=== PATIENT | male | born 1980 | race Caucasian/White ===

== ENCOUNTER 2020-07-08 18:30 | Emergency (ER) | payer SELFPAY ==
[2020-07-08] MEDS ORDERED: Sodium Chloride 0.9% 10 ML Syringe FLUSH PRN (18:44)
[2020-07-08] MEDS ORDERED: HYDROmorphone 2 MG/ML SDV IVPUSH ONE (18:47)
[2020-07-08] MEDS ORDERED: Ondansetron 4 MG/2 ML SDV IVPUSH ONE (18:47)
[2020-07-08] MEDS ORDERED: Morphine 4 MG/ML VIAL IVPUSH ONE (18:56)
[2020-07-08] MEDS ORDERED: Sodium Chloride 0.9% 1,000 ML IV SCH (19:00)
--- NOTE | 2020-07-08 19:54 | CT ---
INDICATION: Right flank pain, post-lithotripsy Tuesday. Pain since lithotripsy. Worse tonight. CT ABDOMEN AND PELVIS WITHOUT CONTRAST: Spiral 2.5 mm axial sections were obtained through the abdomen and pelvis without contrast with sagittal and coronal reconstructions 07/08/20 and compared with 06/18/20. Total exam DLP was 521.92 mGy-cm. The lower lung bashir and pleural spaces visualized on this study were unremarkable. The heart is not enlarged. No pericardial effusion was seen. The liver, spleen, adrenals, contracted gallbladder, and pancreas appear normal. The left kidney had a normal appearance with no obstructive uropathy. The right kidney is more prominent in size with perirenal fascial thickening and fat stranding and a fluid collection along the inferolateral aspect of the lower pole of the right kidney with some fat stranding extending into the pericolic gutter slightly. This appearance is apparently on the basis of hydronephrosis - significant increased level of obstructive uropathy present on the current study compared with 06/18/20. This is despite the presence of an ureteral stent with pigtail in place in the renal pelvis and urinary bladder on the right. There is also considerable fat stranding and density around the ureter as it travels into the pelvis. These findings were all compatible with a relatively severe degree of obstructive uropathy raising question of patency of the ureteral stent. There is urine in the urinary bladder, however, and there is thickening of the wall of the urinary bladder which further raises question of possibility of cystitis. The appendix is absent with history of its removal. No evidence of bowel obstruction or free air was seen. No retroperitoneal mass was identified. No additional organomegaly, mass lesions or additional areas of free fluid collection was seen. IMPRESSION: Significant increase in obstructive uropathy severity on the right, possibly on the basis of nonpatency of the recently placed ureteral stent on the right. Multiple calculi are noted along the stent in the proximal ureter with at least one smaller calculus in the distal ureter adjacent to the stent. No definite remaining calculi are seen in either kidney - the large renal pelvic calculus seen on the right apparently has been surgically fragmented apparently with lithotripsy. Report was called to Dr. Loyd at 1927 hours. [facility]
[2020-07-08] MEDS ORDERED: Sulfamethoxazole/Trimethoprim 800-160 MG Tab PO ONE (20:00)
--- NOTE | 2020-07-08 20:06 | EDM.PDOC ---
ED HPI GENERAL MEDICAL PROBLEM - General Chief Complaint: Flank Pain Stated Complaint: PAIN IN KIDNEY AREA Time Seen by Provider: 07/08/20 20:25 Source of Information: Reports: Patient History Limitations: Reports: No Limitations - History of Present Illness INITIAL COMMENTS - FREE TEXT/NARRATIVE: Patient presented to the ED because of RT flank pain. He has a h/o kidney stone and underwent ESWL with stent 1 week ago in [facility]. he still have hematuria and his RT flank pain has not improved at all since the procedure. There is no fever,chills, N/V/D. He took is norco with just mild relief. Right Abdominal Pain Score (Numeric/FACES): 9 - Related Data Allergies Allergy/AdvReac Type Severity Reaction Status Date / Time No Known Allergies Allergy Verified 07/08/20 19:51 Home Meds: Home Meds Acetaminophen/oxyCODONE [Percocet 325-5 MG] 1 each PO Q4H PRN #15 tab 07/08/20 [Rx] Sulfamethoxazole/Trimethoprim [Bactrim Ds Tablet] 1 each PO BID #15 tablet 07/08/20 [Rx] Past Medical History Genitourinary History: Reports: Renal Calculus - Past Surgical History Male Surgical History: Reports: Kidney Stone Extraction, Lithotripsy (ESWL) Social & Family History - Tobacco Use Tobacco Use Status *Q: Current Every Day Tobacco User Years of Tobacco use: 20 Packs/Tins Daily: 1 - Caffeine Use Caffeine Use: Reports: None - Recreational Drug Use Recreational Drug Use: No ED ROS GENERAL - Review of Systems Review Of Systems: See Below Constitutional: Reports: No Symptoms HEENT: Reports: No Symptoms Respiratory: Reports: No Symptoms Cardiovascular: Reports: No Symptoms Endocrine: Reports: No Symptoms GI/Abdominal: Reports: No Symptoms : Reports: Flank Pain, Hematuria Musculoskeletal: Reports: No Symptoms Skin: Reports: No Symptoms Neurological: Reports: No Symptoms ED EXAM, RENAL/ - Physical Exam Exam: See Below Exam Limited By: No Limitations General Appearance: Alert, No Apparent Distress Ears: Normal External Exam, Normal Canal Nose: Normal Inspection, Normal Mucosa Throat/Mouth: Normal Inspection, Normal Lips, Normal Teeth Head: Atraumatic, Normocephalic Neck: Normal Inspection, Supple, Non-Tender, Full Range of Motion Respiratory/Chest: No Respiratory Distress, Lungs Clear, Normal Breath Sounds Cardiovascular: Normal Peripheral Pulses, Regular Rate, Rhythm, No Edema GI/Abdominal: Normal Bowel Sounds, Soft, Non-Tender (Male) Exam: No Hernia Back Exam: Normal Inspection, Full Range of Motion Extremities: Normal Inspection Neurological: Alert, Oriented, CN II-XII Intact, Normal Cognition, Normal Gait Psychiatric: Normal Affect, Normal Mood Skin Exam: Warm, Dry, Intact, Normal Color Course - Vital Signs Text/Narrative:: Labs/CT result was duscussed with patient NS 1 L bolus Zpofran 4 mg IV Toradol 30 mg IV Case discussed with Dr Ureña who reviewed the CT as well and recommended for patient just to keep his appointment for a follow up with Dr Cochran on 07/18/2020. Info relayed to the patient. Last Recorded V/S: Last Vital Signs Temp 36.5 C 07/08/20 20:20 Pulse 83 07/08/20 20:20 Resp 18 07/08/20 20:20 BP 150/94 H 07/08/20 20:20 Pulse Ox 98 07/08/20 20:20 - Orders/Labs/Meds Orders: Active Orders 24 hr Category Date Time Status CULTURE URINE [RM] Stat Lab 07/08/20 19:10 Received Saline Lock Insert [OM.PC] Routine Oth 07/08/20 18:44 Ordered Labs: Laboratory Tests 07/08/20 07/08/20 07/08/20 Range/Units 19:00 19:00 19:05 WBC 10.1 (4.5-12.0) X10-3/uL RBC 5.34 (4.30-5.75) x10(6)uL Hgb 16.0 (13.5-17.8) g/dL Hct 46.7 (30.0-51.3) % MCV 87.4 (80-96) fL MCH 29.9 (27.7-33.6) pg MCHC 34.3 (32.2-35.4) g/dL RDW 12.5 (11.5-15.5) % Plt Count 328 (125-369) X10(3)uL MPV 7.5 (7.4-10.4) fL Neut % (Auto) 57.3 (46-82) % Lymph % (Auto) 29.7 (13-37) % [place] % (Auto) 9.2 (4-12) % Eos % (Auto) 3 (1.0-5.0) % Baso % (Auto) 1 (0-2) % Neut # (Auto) 5.8 (1.6-8.3) # Lymph # (Auto) 3.0 (0.6-5.0) # [place] # (Auto) 0.9 (0.0-1.3) # Eos # (Auto) 0.3 (0.0-0.8) # Baso # (Auto) 0.1 (0.0-0.2) # Sodium 139 (135-145) mmol/L Potassium 3.6 (3.5-5.3) mmol/L Chloride 102 (100-110) mmol/L Carbon Dioxide 27 (21-32) mmol/L BUN 17 (7-18) mg/dL Creatinine 1.0 (0.70-1.30) mg/dL Est Cr Clr Drug Dosing TNP Estimated GFR (MDRD) > 60 (>60) BUN/Creatinine Ratio 17.0 (9-20) Glucose 154 H (80-116) mg/dL Calcium 9.1 (8.6-10.2) mg/dL Urine Color [place] (YELLOW) Urine Appearance Cloudy (CLEAR) Urine pH 6.0 (5.0-6.5) Ur Specific [place] 1.020 (1.010-1.025) Urine Protein 500 H (NEGATIVE) mg/dL Urine Glucose (UA) Normal (NORMAL) mg/dL Urine Ketones Negative (NEGATIVE) mg/dL Urine Occult Blood Large H (NEGATIVE) Urine Nitrite Negative (NEGATIVE) Urine Bilirubin Negative (NEGATIVE) Urine Urobilinogen 1 H (NEGATIVE) mg/dL Ur Leukocyte Esterase Large H (NEGATIVE) Urine RBC >100 H (0-5) Urine WBC 20-30 H (0-5) Ur Squamous Epith Cells Occasional (NS,R,O) Urine Bacteria Few H (NS) Meds: Medications Discontinued Medications Generic Name Dose Route Start Last Admin Trade Name Freq PRN Reason Stop Dose Admin Hydromorphone HCl 1 mg 07/08/20 18:47 07/08/20 19:54 Dilaudid IVPUSH 07/08/20 18:48 Not Given ONETIME ONE Sodium Chloride 1,000 mls @ 999 mls/hr 07/08/20 19:00 07/08/20 19:26 Normal Saline IV 999 mls/hr ASDIRECTED ROMEL Administration Ketorolac Tromethamine 60 mg 07/08/20 20:00 07/08/20 23:12 Toradol IM 07/08/20 20:01 Not Given ONETIME ONE Ketorolac Tromethamine 30 mg 07/08/20 20:09 07/08/20 20:11 Toradol IVPUSH 07/08/20 20:10 30 mg ONETIME ONE Administration Morphine Sulfate 4 mg 07/08/20 18:56 07/08/20 19:35 Morphine IVPUSH 07/08/20 18:57 4 mg ONETIME ONE Administration Ondansetron HCl 4 mg 07/08/20 18:47 07/08/20 19:28 Zofran IVPUSH 07/08/20 18:48 4 mg ONETIME ONE Administration Sodium Chloride 10 ml 07/08/20 18:44 Saline Flush FLUSH ASDIRECTED PRN Keep Vein Open Trimethoprim/Sulfamethoxazole 1 tab 07/08/20 20:00 07/08/20 20:07 Septra Ds PO 07/08/20 20:01 1 tab ONETIME ONE Administration Departure - Departure Time of Disposition: 20:00 Disposition: Home, Self-Care 01 Condition: Good Clinical Impression: Nephrolithiasis - Discharge Information Prescriptions: Sulfamethoxazole/Trimethoprim [Bactrim Ds Tablet] 1 each PO BID #15 tablet Acetaminophen/oxyCODONE [Percocet 325-5 MG] 1 each PO Q4H PRN #15 tab PRN Reason: Pain Instructions: Kidney Stones, [id number] Referrals: Kamran Siddiqi MD [Primary Care Provider] - Forms: ED Department Discharge Additional Instructions: Please read discharge instructions on kidney stent, UTI Increase oral fluids Take oxycodone, 1-2 tablets every 4-6 hours as needed for pain Bactrim DS twice daily for 7 days Keep your appointment to see Dr Cochran on 07/18/10 Sepsis Event Note (ED) - Evaluation Sepsis Screening Result: No Definite Risk - My Orders Last 24 Hours: My Active Orders 07/08/20 18:44 Saline Lock Insert [OM.PC] Routine 07/08/20 19:10 CULTURE URINE [RM] Stat - Assessment/Plan Last 24 Hours: My Active Orders 07/08/20 18:44 Saline Lock Insert [OM.PC] Routine 07/08/20 19:10 CULTURE URINE [RM] Stat
[2020-07-08] MEDS: Ketorolac 60 MG/2 ML SDV IM ONE ×2 (20:08→23:12)
[2020-07-08] MEDS ORDERED: Ketorolac 30 MG/ML SDV IVPUSH ONE (20:09)
== END 2020-07-08 20:25 | disposition home or self-care (01) ==
LOC: FB.ED 18:30
DX: N13.2 Hydronephrosis with renal and ureteral calculous obstruction (principal); F17.210 Nicotine dependence, cigarettes, uncomplicated
CPT/HCPCS: 36415; 74176; 80048; 81001; 85025; 87086; 96374; 96375; 99284; A9270; J1885; J2270; J2405; J7030

== ENCOUNTER 2021-03-12 06:53 | Emergency (ER) | payer SELFPAY ==
--- NOTE | 2021-03-12 07:14 | EDM.PDOC ---
ED HPI GENERAL MEDICAL PROBLEM - General Chief Complaint: Upper Extremity Injury/Pain Stated Complaint: swollen elbow Time Seen by Provider: 03/12/21 07:10 Source of Information: Reports: Patient History Limitations: Reports: No Limitations - History of Present Illness INITIAL COMMENTS - FREE TEXT/NARRATIVE: Nicole presented to the ED because of RT elbow pain,redness and swelling which started today. There is no associated fever or chills. He does not know if an insect bit his elbow. Left Elbow Pain Score (Numeric/FACES): 5 - Related Data Allergies Allergy/AdvReac Type Severity Reaction Status Date / Time No Known Allergies Allergy Verified 07/08/20 19:51 Home Meds: Home Meds Naproxen 500 mg PO BID #15 tablet 03/12/21 [Rx] Sulfamethoxazole/Trimethoprim [Bactrim Ds Tablet] 1 each PO BID #20 tablet 03/12/21 [Rx] Past Medical History Genitourinary History: Reports: Renal Calculus - Past Surgical History Male Surgical History: Reports: Kidney Stone Extraction, Lithotripsy (ESWL) Social & Family History - Caffeine Use Caffeine Use: Reports: None Review of Systems - Review of Systems Review Of Systems: See Below Constitutional: Reports: No Symptoms Eyes: Reports: No Symptoms Ears: Reports: No Symptoms Nose: Reports: No Symptoms Mouth/Throat: Reports: No Symptoms Respiratory: Reports: No Symptoms Cardiovascular: Reports: No Symptoms GI/Abdominal: Reports: No Symptoms Genitourinary: Reports: No Symptoms Musculoskeletal: Reports: Other (RT elbow pain) Skin: Reports: Erythema Neurological: Reports: No Symptoms Psychiatric: Reports: No Symptoms ED EXAM, GENERAL - Physical Exam Exam: See Below Exam Limited By: Altered Mental Status General Appearance: Alert, No Apparent Distress Ears: Normal External Exam, Normal Canal, Hearing Grossly Normal Nose: Normal Inspection, Normal Mucosa, No Blood Throat/Mouth: Normal Inspection, Normal Lips, Normal Teeth Head: Atraumatic, Normocephalic Neck: Normal Inspection, Supple, Non-Tender, Full Range of Motion Respiratory/Chest: No Respiratory Distress, Lungs Clear, Normal Breath Sounds, No Accessory Muscle Use, Chest Non-Tender Cardiovascular: Normal Peripheral Pulses, Regular Rate, Rhythm, No Edema, No Gallop GI/Abdominal: Normal Bowel Sounds, Soft, Non-Tender, No Organomegaly, No Distention, No Abnormal Bruit Back Exam: Normal Inspection, Full Range of Motion Extremities: Normal Inspection, Normal Range of Motion, Other (tenderness,erythema,swelling RT elbow) Course - Vital Signs Last Recorded V/S: Last Vital Signs Temp 37.1 C 03/12/21 07:01 Pulse 92 03/12/21 07:15 Resp 20 03/12/21 07:15 BP 140/78 03/12/21 07:15 Pulse Ox 99 03/12/21 07:15 Departure - Departure Time of Disposition: 07:20 Disposition: Home, Self-Care 01 Condition: Good Clinical Impression: Cellulitis - Discharge Information Prescriptions: Sulfamethoxazole/Trimethoprim [Bactrim Ds Tablet] 1 each PO BID #20 tablet Naproxen 500 mg PO BID #15 tablet Instructions: Cellulitis, Adult, [id number] Referrals: PCP,Unknown [Primary Care Provider] - Forms: ED Department Discharge Additional Instructions: Please rad discharge instructions on cellulitis Take naproxen twice daily for 1 wee Bactrim DS twice daily for 10 days Follow up as needed Sepsis Event Note (ED) - Evaluation Sepsis Screening Result: No Definite Risk - Focused Exam Vital Signs: Vital Signs Temp Pulse Resp BP Pulse Ox 03/12/21 07:15 92 20 140/78 99 03/12/21 07:01 37.1 C 100 20 147/89 H 96
== END 2021-03-12 07:19 | disposition home or self-care (01) ==
LOC: FB.ED 06:53
DX: L03.113 Cellulitis of right upper limb (principal)
CPT/HCPCS: 99283

== ENCOUNTER 2021-05-15 21:23 | Emergency (ER) | payer BC ==
[2021-05-15] MEDS ORDERED: Gentamicin 0.3% Ophth Soln 5 ML Bottle EYEBOTH ONE (21:24)
--- NOTE | 2021-05-15 22:13 | EDM.PDOC ---
ED HPI GENERAL MEDICAL PROBLEM - General Chief Complaint: ENT Problem Stated Complaint: something in eye Time Seen by Provider: 05/15/21 21:50 Source of Information: Reports: Patient History Limitations: Reports: No Limitations - History of Present Illness INITIAL COMMENTS - FREE TEXT/NARRATIVE: pt was drilling into metal as he felt something flew into his left eye this afternoon and since then has pain and tearing at left eye, pt denies any other associated sx or any other medical concerns or problems with his vision. Left Eye Pain Score (Numeric/FACES): 4 - Related Data Allergies Allergy/AdvReac Type Severity Reaction Status Date / Time No Known Allergies Allergy Verified 07/08/20 19:51 Home Meds: Home Meds Naproxen 500 mg PO BID #15 tablet 03/12/21 [Rx] Sulfamethoxazole/Trimethoprim [Bactrim Ds Tablet] 1 each PO BID #20 tablet 03/12/21 [Rx] Past Medical History - Past Health History Medical/Surgical History: Denies Medical/Surgical History Genitourinary History: Reports: Renal Calculus - Past Surgical History Male Surgical History: Reports: Kidney Stone Extraction, Lithotripsy (ESWL) Social & Family History - Family History Family Medical History: No Pertinent Family History - Tobacco Use Tobacco Use Status *Q: Current Every Day Tobacco User Years of Tobacco use: 20 Packs/Tins Daily: 1 - Caffeine Use Caffeine Use: Reports: Coffee - Recreational Drug Use Recreational Drug Use: No ED ROS GENERAL - Review of Systems Review Of Systems: See Below Constitutional: Reports: No Symptoms Respiratory: Reports: No Symptoms Cardiovascular: Reports: No Symptoms ED EXAM, GENERAL - Physical Exam Exam: See Below Exam Limited By: No Limitations General Appearance: Alert, No Apparent Distress Eye Exam: Left Eye: Conjunctival Injection, Bilateral Eye: Normal Inspection Ear Exam: Left Ear: Other (tetracain and floursen were applied , no abrasions seen but is a tiny foriegn body at 3 o'c;ock over the cornea. / less than a millimeter ) Course - Vital Signs Text/Narrative:: removal of foriegn object from left eye was attempted with no success , subsequently gentak was applied and pt was advised to follow with the local eye clinic [facility] when its open , meanwhile to use over the counter motrin as directed for associated discomfort. and to continue with gentak tid. Last Recorded V/S: Last Vital Signs Temp 36.7 C 05/15/21 21:30 Pulse 82 05/15/21 21:30 Resp 16 05/15/21 21:30 BP 134/85 05/15/21 21:30 Pulse Ox 94 L 05/15/21 21:30 Departure - Departure Time of Disposition: 22:13 Disposition: Home, Self-Care 01 Clinical Impression: Cornea abrasion - Discharge Information Sepsis Event Note (ED) - Evaluation Sepsis Screening Result: No Definite Risk - Focused Exam Vital Signs: Vital Signs Temp Pulse Resp BP Pulse Ox 05/15/21 21:30 36.7 C 82 16 134/85 94 L
== END 2021-05-15 22:11 | disposition home or self-care (01) ==
LOC: FB.ED 21:23
DX: S05.02XA Injury of conjunctiva and corneal abrasion without foreign body, left eye, initial encounter (principal); Z72.0 Tobacco use; W22.8XXA Striking against or struck by other objects, initial encounter
CPT/HCPCS: 99283; A9270-GY